=== PATIENT | female | born 1955 | race American Indian/Alaskan Native ===

== ENCOUNTER 2017-10-28 04:24 | Emergency (ER) | payer SELFPAY ==
[2017-10-28 04:31] VITALS: BP 124/82
--- NOTE | 2017-10-28 06:30 | Emergency Department Report ---
ED Back Pain/Injury HPI - General Chief Complaint: Back Pain/Injury Stated Complaint: BACK AND NECK PAIN Time Seen by Provider: 10/28/17 06:24 Source: patient Limitations: No Limitations - History of Present Illness Initial Comments: Patient is a 61-year-old female with history of chronic low back pain who presents for low back pain patient denies injury or trauma there is no numbness no tingling or weakness no loss of decrease in bowel or bladder function Pain described as for 10 right low back radiating to right thigh pain is exacerbated by prolonged sitting standing and walking pain is relieved by offloading and rest MD Complaint: back pain -: year(s) (5) Similar Symptoms Previously: Yes Place: home Radiation: right leg Severity: moderate Severity scale (0 -10): 4 Quality: aching Consistency: intermittent Improves With: none Worsens With: movement, sitting upright, walking Context: turning/twisting, bending Associated Symptoms: denies: confusion, weakness, chest pain, numbness, difficulty walking, cough, difficulty urinating, diaphoresis, incontinence, fever/chills, constipation, headaches, abdominal pain, loss of appetite, malaise , nausea/vomiting, rash, seizure, shortness of breath, syncope - Related Data Previous Rx's Medication Instructions Recorded Last Taken Type Dextromethorphan HBr [Cough 15 mg PO Q4-6H #30 capsule 10/01/15 Unknown Rx Control] Cyclobenzaprine [Flexeril] 10 mg PO BID PRN #20 tablet 10/28/17 Unknown Rx Menthol/Camphor [[place] 1 applic TP TID #1 tube 10/28/17 Unknown Rx Ointment] Naproxen [EC-Naprosyn] 500 mg PO BID #30 tablet. 10/28/17 Unknown Rx Allergies Allergy/AdvReac Type Severity Reaction Status Date / Time levofloxacin [From Levaquin] Allergy Itching Verified 10/01/15 05:23 ED Review of Systems ROS: Stated complaint: BACK AND NECK PAIN Other details as noted in HPI Constitutional: denies: chills, fever Eyes: denies: eye pain, eye discharge, vision change ENT: denies: ear pain, throat pain Respiratory: denies: cough, shortness of breath, wheezing Cardiovascular: denies: chest pain, palpitations Endocrine: no symptoms reported Gastrointestinal: denies: abdominal pain, nausea, diarrhea Genitourinary: denies: urgency, dysuria, discharge Musculoskeletal: back pain, arthralgia, myalgia. denies: joint swelling Skin: denies: rash, lesions Neurological: denies: headache, weakness, paresthesias Psychiatric: denies: anxiety, depression Hematological/Lymphatic: denies: easy bleeding, easy bruising ED Past Medical Hx - Past Medical History Previous Medical History?: Yes Additional medical history: Chronic back pain/unknown of other - Surgical History Past Surgical History?: Yes Additional Surgical History: unknown - Social History Smoking Status: Never Smoker Substance Use Type: None - Medications Home Medications: Home Medications Medication Instructions Recorded Confirmed Last Taken Type Dextromethorphan HBr [Cough 15 mg PO Q4-6H #30 capsule 10/01/15 10/21/15 Unknown Rx Control] Cyclobenzaprine [Flexeril] 10 mg PO BID PRN #20 tablet 10/28/17 Unknown Rx Menthol/Camphor [[place] 1 applic TP TID #1 tube 10/28/17 Unknown Rx Ointment] Naproxen [EC-Naprosyn] 500 mg PO BID #30 tablet. 10/28/17 Unknown Rx ED Physical Exam - General Limitations: No Limitations General appearance: alert, in no apparent distress - Head Head exam: Present: atraumatic, normocephalic - Eye Eye exam: Present: normal appearance - ENT ENT exam: Present: normal exam, mucous membranes moist - Neck Neck exam: Present: normal inspection - Respiratory Respiratory exam: Present: normal lung sounds bilaterally. Absent: respiratory distress - Cardiovascular Cardiovascular Exam: Present: regular rate, normal rhythm. Absent: systolic murmur, diastolic murmur, rubs, gallop - GI/Abdominal GI/Abdominal exam: Present: soft, normal bowel sounds - Rectal Rectal exam: Present: deferred - Extremities Exam Extremities exam: Present: normal inspection, full ROM, normal capillary refill. Absent: tenderness, pedal edema, joint swelling, calf tenderness - Back Exam Back exam: Present: normal inspection, full ROM, tenderness, muscle spasm, paraspinal tenderness. Absent: CVA tenderness (R), CVA tenderness (L), vertebral tenderness, rash noted (mild right lateral lumbar muscle pain rom intact pos straight leg ) - Neurological Exam Neurological exam: Present: alert, oriented X3, CN II-XII intact, normal gait, reflexes normal. Absent: motor sensory deficit - Expanded Neurological Exam Expanded Patient oriented to: Present: person, place, time Speech: Present: fluid speech Cranial nerves: EOM's Intact: Normal, Gag Reflex: Normal, Tongue Deviation: Normal, Nystagmus: Normal, Facial Sensation: Normal Cerebellar function: Finger to Nose: Normal, Heel to Jones: Normal, Romberg: Normal Upper motor neuron: Patrice Neglect: Normal, Pronator Drift: Normal, Babinski Sign : Normal, Sensory Extinction: Normal Sensory exam: Upper Extremity Light Touch: Normal, Upper Extremity Pin Prick: Normal, Upper Extremity Temperature: Normal, UE 2 Point Discrimination: Normal, Lower Extremity Light Touch: Normal, Lower Extremity Pin Prick: Normal, Lower Extremity Temperature: Normal, LE 2 Point Discrimination: Normal Motor strength exam: RUE: 5, LUE: 5, RLE: 5, LLE: 5 DTR: bicep (R): 2+, bicep (L): 2+, tricep (R): 2+, tricep (L): 2+, knee (R): 2+ , knee (L): 2+, ankle (R): 2+, ankle (L): 2+ Best Eye Response (Callender): (4) open spontaneously Best Motor Response (Mireya): (6) obeys commands Best Verbal Response (Mireya): (5) oriented Callender Total: 15 - Psychiatric Psychiatric exam: Present: normal affect, normal mood - Skin Skin exam: Present: warm, dry, intact, normal color. Absent: rash ED Course Vital Signs 10/28/17 04:24 Temperature 98.0 F Pulse Rate 79 Respiratory 18 Rate Blood Pressure 124/82 O2 Sat by Pulse 100 Oximetry ED Medical Decision Making - Medical Decision Making This is acute on chronic low back pain mild pain to straight leg raise right posterior vertebral point tenderness now muscular pain patient is ambulatory. Gait is steady there is no weakness no numbness no tingling decrease in bowel or bladder function. There is no dysuria no hematuria no symptoms of UTI no abdominal pain no nausea vomiting plan continue NSAIDs muscle relaxants moist heat therapy back exercises and follow with PCP in 2-3 days patient verbalizes understanding and agreement with same patient will be discharged home in stable condition at this time Critical care attestation.: If time is entered above; I have spent that time in minutes in the direct care of this critically ill patient, excluding procedure time. ED Disposition Clinical Impression: Chronic low back pain Qualifiers: Back pain laterality: right Sciatica presence: with sciatica Sciatica laterality: sciatica of right side Qualified Code(s): M54.41 - Lumbago with sciatica, right side; G89.29 - Other chronic pain Disposition: TO HOME OR SELFCARE Is pt being admited?: No Does the pt Need Aspirin: No Condition: Good Instructions: Chronic Back Pain (ED), Arthralgia (ED), Core Strengthening Exercises (GEN) Prescriptions: Cyclobenzaprine [Flexeril] 10 mg PO BID PRN #20 tablet PRN Reason: Muscle Spasm Menthol/Camphor [[place] Ointment] 1 applic TP TID #1 tube Naproxen [EC-Naprosyn] 500 mg PO BID #30 tablet. Referrals: PRIMARY CARE, [Primary Care Provider] - 3-5 Days Forms: Work/School Release Form(ED) Time of Disposition: 06:36
== END 2017-10-28 07:22 | disposition home or self-care (01) ==
LOC: ED 04:24
DX: M54.41 Lumbago with sciatica, right side (principal); G89.29 Other chronic pain; Z88.1 Allergy status to other antibiotic agents
CPT/HCPCS: 99282

== ENCOUNTER 2019-05-22 02:52 | Emergency (ER) | payer SELFPAY | END 2019-05-22 03:00 | disposition left against medical advice (07) | LOC: ED 02:52 | DX: R69 Illness, unspecified (principal); Z53.21 Procedure and treatment not carried out due to patient leaving prior to being seen by health care provider ==